=== PATIENT | female | born 1970 | race Caucasian/White ===

== ENCOUNTER → 2017-07-14 09:49 | Outpatient (CLI) | payer OTHER, SELFPAY ==
[2017-07-14 14:11] LABS: Thyroid Stim Hormone (TSH) 0.76 uIU/mL (0.358-3.74)
[2017-07-19 14:14] LABS: Vitamin D 1,25-Dihydroxy 36.3 pg/mL (19.9-79.3)
== END ==
PROVIDERS: Visit Provider Nurse Practitioner Women's Health
DX: R53.83 Other fatigue (principal)
CPT/HCPCS: 36415; 82652; 84443

== ENCOUNTER → 2017-07-14 18:37 | Outpatient (CLI) | payer OTHER, SELFPAY ==
[2017-07-20 13:51] LABS: HPV APTIMA, High Risk Negative (Negative)
== END ==
PROVIDERS: Visit Provider Nurse Practitioner Women's Health
DX: Z12.4 Encounter for screening for malignant neoplasm of cervix (principal)
CPT/HCPCS: 88175; G0145

== ENCOUNTER → 2017-08-02 17:30 | Outpatient (CLI) | payer OTHER, SELFPAY ==
--- NOTE | 2017-08-02 17:06 | HPBI_ITS ---
MAMMOGRAPHY - BILATERAL SCREENING REASON FOR EXAM: Female, 47 years old. Routine annual screening examination. PERTINENT HISTORY: Non-contributory. TECHNIQUE: Digital bilateral breast quintin (3D mammographic acquisition) in the CC and MLO projections. 2-D mediolateral oblique (MLO) and craniocaudad (CC) views of both breasts were obtained. CAD: Full Field Digital Mammography with Computer Added Detection was performed. COMPARISON: Comparison is made with prior abdomen examination dated August 16, 2016. FINDINGS: Breast Composition: The breasts are heterogeneously dense, which may obscure small masses. There are no dominant masses or suspicious calcifications. No other significant abnormalities are identified. There has been no significant change since the prior study. HPBI/SCREENING MAMM (CAD), BILAT IMPRESSION: Stable bilateral screening mammogram. Yearly follow-up mammogram recommended. (A) ASSESSMENT CATEGORY: BIRADS Category 1: Negative. A letter regarding these results will be sent to the patient by the facility within 30 days. Approximately 10% of breast cancers are not detected by mammography. A normal mammogram should not delay biopsy of a clinically suspicious abnormality. [id number] Electronically Signed: Geovanni Milner MD at 8:09 EDT Tel [phone], Service support ,
== END ==
PROVIDERS: Visit Provider Nurse Practitioner Women's Health
DX: Z12.31 Encounter for screening mammogram for malignant neoplasm of breast (principal)
CPT/HCPCS: 77063; 77067

== ENCOUNTER → 2017-08-12 09:22 | Outpatient (CLI) | payer OTHER, SELFPAY ==
--- NOTE | 2017-08-12 09:23 | US_ITS ---
STUDY: ULTRASOUND TRANSVAGINAL CLINICAL: Female, 47 years old. Irregular menses. TECHNIQUE: Transabdominal and Transvaginal COMPARISON: Pelvic ultrasound dated August 12, 2017 FINDINGS: Normal uterine size measuring 10.4 x 4.9 x 5.6 cm. There are 2 myometrial masses. The largest mass appears to somewhat pedunculated and subserosal. This is located at the uterine fundus and measures 2.5 x 2.4 x 2.6 cm. A smaller hypoechoic lesion is visible within the uterine body measuring 5.4 x 4.2 x 6.7 mm. Normal endometrial thickness measuring 6.5 mm. There are no endometrial masses, and there is no fluid in the endometrial cavity. Appears to be a large nabothian cyst within the cervix measuring up to 1.4 cm. The cervix is a grossly normal appearance otherwise. Normal right ovary, measuring 2.2 x 3.4 x 2.2 cm. There are multiple follicles without a dominant cyst. Normal left ovary, measuring 1.6 x 2.9 x 1.7 cm. There are multiple follicles without a dominant cyst. There is no free fluid in the pelvis. Polycystic ovary disease: No. US/Pelvic (Non ) IMPRESSION: 1. Multiple uterine masses are likely leiomyomata. 2. Normal sonographic appearance of both ovaries. Electronically Signed: Ignacia Amezcua MD at 11:12 EDT , Service support ,
--- NOTE | 2017-08-12 09:23 | US_ITS ---
STUDY: ULTRASOUND TRANSVAGINAL CLINICAL: Female, 47 years old. Irregular menses. TECHNIQUE: Transabdominal and Transvaginal COMPARISON: Pelvic ultrasound dated August 12, 2017 FINDINGS: Normal uterine size measuring 10.4 x 4.9 x 5.6 cm. There are 2 myometrial masses. The largest mass appears to somewhat pedunculated and subserosal. This is located at the uterine fundus and measures 2.5 x 2.4 x 2.6 cm. A smaller hypoechoic lesion is visible within the uterine body measuring 5.4 x 4.2 x 6.7 mm. Normal endometrial thickness measuring 6.5 mm. There are no endometrial masses, and there is no fluid in the endometrial cavity. Appears to be a large nabothian cyst within the cervix measuring up to 1.4 cm. The cervix is a grossly normal appearance otherwise. Normal right ovary, measuring 2.2 x 3.4 x 2.2 cm. There are multiple follicles without a dominant cyst. Normal left ovary, measuring 1.6 x 2.9 x 1.7 cm. There are multiple follicles without a dominant cyst. There is no free fluid in the pelvis. Polycystic ovary disease: No. US/Transvaginal Non- IMPRESSION: 1. Multiple uterine masses are likely leiomyomata. 2. Normal sonographic appearance of both ovaries. Electronically Signed: Ignacia Amezcua MD at 11:12 EDT , Service support ,
== END ==
PROVIDERS: Visit Provider Nurse Practitioner Women's Health
DX: N92.6 Irregular menstruation, unspecified (principal)
CPT/HCPCS: 76830; 76856; 93976

== ENCOUNTER → 2017-08-16 15:59 | Outpatient (CLI) | payer OTHER, SELFPAY ==
--- NOTE | 2017-08-16 | EMB_PTH ---
PATIENT: CHICO BANEGAS LOC: [facility] U#:[id number] AGE/SX: 55/F ROOM: RE08/16/[address]: SAMAN Tamayo : 1970 BED: DIS: SPEC #: [id number] RECD: 08/16/17 15:58 STATUS: ELINA RAYMOND #: [id number] SHALOM: 08/16/17 00:[address]: Le Vargas NP DEPT: SURGICAL PATHOLOGY RECD BY: Richard Barber ENTERED: 08/17/17 08:06 SP TYPE: ENDOM BX/C PEGGY DR: No Primary Care Phys Tissues: Endometrium, NOS Procedures: Surgery Specimen Level IV HEADER OPERATION: Endometrial biopsy PRE-OP DIAGNOSIS: Thickened endometrial lining TISSUE SUBMITTED: Endometrial biopsy MICROSCOPIC DIAGNOSIS Endometrium, biopsy: Strips of benign superficial endometrium. Rare strips of benign superficial ectocervix and endocervix. AM:darlin 08/18/17 COMMENT There is no evidence of hyperplasia. MICROSCOPIC DESCRIPTION Slides are reviewed. GROSS DESCRIPTION Received is one container labeled with the patient's name and not further designated. The specimen consists of multiple fragments of hemorrhagic soft tissue that in aggregate measure 2 x 0.7 x 0.1 cm. The specimen is totally submitted in one cassette. / SJ:darlin 08/17/17 TC:5 [facility]: [id number]
== END ==
PROVIDERS: Visit Provider Nurse Practitioner Women's Health
DX: R93.8 Abnormal findings on diagnostic imaging of other specified body structures (principal)
CPT/HCPCS: 88305

== ENCOUNTER → 2018-09-13 | Outpatient (CLI) | payer OTHER, SELFPAY ==
--- NOTE | 2018-09-13 13:35 | BI_ITS ---
MAMMOGRAPHY - BILATERAL SCREENING REASON FOR EXAM: Female, 48 years old. Routine annual screening examination. PERTINENT HISTORY: Non-contributory. TECHNIQUE: Digital bilateral breast ned (3D mammographic acquisition) in the CC and MLO projections. 2-D mediolateral oblique (MLO) and craniocaudad (CC) views of both breasts were obtained. CAD: Full Field Digital Mammography with Computer Added Detection was performed. COMPARISON: Comparison is made with prior study dated August 02, 2017. FINDINGS: Breast Composition: The breasts are heterogeneously dense, which may obscure small masses. There are no dominant masses or suspicious calcifications. No other significant abnormalities are identified. There has been no significant change since the prior study. BI/SCREEN MAMM (CAD) W/NED BILAT IMPRESSION: Stable bilateral screening mammogram. Yearly follow-up mammogram recommended. (A) ASSESSMENT CATEGORY: BIRADS Category 1: Negative. A letter regarding these results will be sent to the patient by the facility within 30 days. Approximately 10% of breast cancers are not detected by mammography. A normal mammogram should not delay biopsy of a clinically suspicious abnormality. [id number] Electronically Signed: Geovanni Milner, at 15:23 EDT , Service support ,
== END | disposition home or self-care (01) ==
LOC: OPBI 13:33
PROVIDERS: Family Provider Family Medicine; PCP Family Medicine; Referring Provider Nurse Practitioner Women's Health; Visit Provider Nurse Practitioner Women's Health
DX: Z12.31 Encounter for screening mammogram for malignant neoplasm of breast (principal)
CPT/HCPCS: 77063; 77067

== ENCOUNTER → 2019-11-21 15:00 | Outpatient (CLI) | payer OTHER, SELFPAY ==
[2018-09-13 14:34] VITALS: BMI 32.6
--- NOTE | 2019-11-21 15:00 | BI_ITS ---
MAMMOGRAPHY - BILATERAL SCREENING REASON FOR EXAM: Female, 49 years old. Routine annual screening examination. PERTINENT HISTORY: Non-contributory. TECHNIQUE: Digital bilateral breast ned (3D mammographic acquisition) in the CC and MLO projections. 2-D mediolateral oblique (MLO) and craniocaudad (CC) views of both breasts were obtained. CAD: Full Field Digital Mammography with Computer Added Detection was performed. COMPARISON: Comparison is made with prior examination dated September 13, 2018 and August 02, 2017. FINDINGS: Breast Composition: The breasts are heterogeneously dense, which may obscure small masses. There are no dominant masses or suspicious calcifications. No other significant abnormalities are identified. There has been no significant change since the prior study. BI/SCREEN MAMM (CAD) W/NED BILAT IMPRESSION: Stable bilateral screening mammogram. Yearly follow-up mammogram recommended. (A) ASSESSMENT CATEGORY: BIRADS Category 1: Negative. A letter regarding these results will be sent to the patient by the facility within 30 days. Approximately 10% of breast cancers are not detected by mammography. A normal mammogram should not delay biopsy of a clinically suspicious abnormality. [id number] Electronically Signed: Geovanni Milner, at 8:15 EDT , Service support ,
== END ==
PROVIDERS: Family Provider Family Medicine; PCP Family Medicine; Referring Provider Nurse Practitioner Women's Health; Visit Provider Nurse Practitioner Women's Health
DX: Z12.31 Encounter for screening mammogram for malignant neoplasm of breast (principal)
CPT/HCPCS: 77063; 77067

== ENCOUNTER → 2021-03-18 14:53 | Outpatient (CLI) | payer OTHER, SELFPAY ==
[2019-11-21 15:52] VITALS: BMI 32.6
--- NOTE | 2021-03-18 14:57 | BI_ITS ---
MAMMOGRAPHY - BILATERAL SCREENING REASON FOR EXAM: Female, 50 years old. Routine annual screening examination. PERTINENT HISTORY: Non-contributory. TECHNIQUE: Digital bilateral breast ned (3D mammographic acquisition) in the CC and MLO projections. 2-D mediolateral oblique (MLO) and craniocaudad (CC) views of both breasts were obtained. CAD: Full Field Digital Mammography with Computer Added Detection was performed. COMPARISON: Comparison is made with prior study dated 11/21/2019 and 09/13/2018. FINDINGS: Breast Composition: The breasts are heterogeneously dense, which may obscure small masses. There are no dominant masses or suspicious calcifications. No other significant abnormalities are identified. There has been no significant change since the prior study. BI/SCRN MAMM (CAD)W/NED BILAT IMPRESSION: Stable bilateral screening mammogram. Yearly follow-up mammogram recommended. (A) ASSESSMENT CATEGORY: BIRADS Category 1: Negative. A letter regarding these results will be sent to the patient by the facility within 30 days. Approximately 10% of breast cancers are not detected by mammography. A normal mammogram should not delay biopsy of a clinically suspicious abnormality. [id number] Electronically Signed: Geovanni Milner MD at 15:42 EDT , Service support ,
== END ==
PROVIDERS: PCP Family Medicine; Referring Provider Nurse Practitioner Women's Health; Visit Provider Nurse Practitioner Women's Health
DX: Z12.31 Encounter for screening mammogram for malignant neoplasm of breast (principal)
CPT/HCPCS: 77063; 77067

== ENCOUNTER → 2022-05-26 | Outpatient (CLI) | payer OTHER, SELFPAY ==
--- NOTE | 2022-05-26 13:49 | BI_ITS ---
MAMMOGRAPHY - BILATERAL SCREENING REASON FOR EXAM: Female, 52 years old. Routine annual screening examination. PERTINENT HISTORY: Non-contributory. TECHNIQUE: Digital bilateral breast ned (3D mammographic acquisition) in the CC and MLO projections. 2-D mediolateral oblique (MLO) and craniocaudad (CC) views of both breasts were obtained. CAD: Full Field Digital Mammography with Computer Added Detection was performed. COMPARISON: Comparison is made with prior study 03/18/2021 and 11/21/2019. FINDINGS: Breast Composition: The breasts are heterogeneously dense, which may obscure small masses. There are no dominant masses or suspicious calcifications. No other significant abnormalities are identified. There has been no significant change since the prior study. BI/SCRN MAMM (CAD)W/NED BILAT IMPRESSION: Stable bilateral screening mammogram. Yearly follow-up mammogram recommended. (A) ASSESSMENT CATEGORY: BIRADS Category 1: Negative. A letter regarding these results will be sent to the patient by the facility within 30 days. Approximately 10% of breast cancers are not detected by mammography. A normal mammogram should not delay biopsy of a clinically suspicious abnormality. [id number] Electronically Signed: Geovanni Milner MD at 15:14 EST ,
[2022-06-01 05:07] LABS: HPV Genotype 16, Aptima Negative (Negative)
[2022-06-01 14:45] LABS: HPV APTIMA, High Risk Positive (Negative); HPV Genotype 18,45 Aptima Negative (Negative)
== END | disposition home or self-care (01) ==
PROVIDERS: PCP Family Medicine; Referring Provider Nurse Practitioner Women's Health; Visit Provider Nurse Practitioner Women's Health
DX: Z12.31 Encounter for screening mammogram for malignant neoplasm of breast (principal); N89.8 Other specified noninflammatory disorders of vagina
CPT/HCPCS: 77063; 77067; 87070; 87205; 87624; 88175; G0145

== ENCOUNTER → 2022-05-31 | Outpatient (CLI) | payer OTHER, SELFPAY ==
--- NOTE | 2022-05-31 16:27 | US_ITS ---
INDICATION: AUB EXAMINATION: Ultrasound US Pelvis Non OB Complete With Transvaginal Imaging TECHNIQUE: Transabdominal and transvaginal pelvic ultrasound was performed. Grayscale, spectral waveform, and color flow Doppler evaluation of the adnexa. COMPARISON: August 12, 2017 FINDINGS: UTERUS: Anteverted. The uterus measures 10.6 x 5.3 x 5.4 cm. There are fibroid measuring 3.2 x 3 x 2.3 cm and 1.6 x 1.5 x 1.4 cm. The endometrial stripe measures 7 mm in AP diameter which is within normal limits. Large nabothian cyst noted in the lower uterine segment RIGHT OVARY: 3.8 x 2.2 x 2.8 cm. Non-enlarged, normal echogenicity. There is normal arterial inflow and venous outflow present in the right ovary. LEFT OVARY: 2.1 x 1.6 x 1.1 cm. Non-enlarged, normal echogenicity. There is normal arterial inflow and venous outflow present in the left ovary. FREE FLUID: None. US/Pelvic (Non ) IMPRESSION: Intrauterine fibroids which have increased in size since prior exam.. No other significant abnormality Unremarkable pelvic ultrasound. Electronically Signed: Antonio Ramos MD at 22:43 EST Reading Location ID and State: [address] [place] [address] , Service support ,
== END | disposition home or self-care (01) ==
PROVIDERS: PCP Family Medicine; Visit Provider Nurse Practitioner Women's Health
DX: N93.9 Abnormal uterine and vaginal bleeding, unspecified (principal)
CPT/HCPCS: 76830; 76856

== ENCOUNTER → 2022-06-30 | Outpatient (CLI) | payer OTHER, SELFPAY ==
[2022-06-30 18:12] LABS: Follicle Stimulating Hormone 14.7 mIU/mL
== END | disposition home or self-care (01) ==
LOC: LAB 16:44
PROVIDERS: PCP Family Medicine; Visit Provider Nurse Practitioner Women's Health
DX: N93.9 Abnormal uterine and vaginal bleeding, unspecified (principal)
CPT/HCPCS: 36415; 82670; 83001

== ENCOUNTER → 2023-06-01 | Outpatient (CLI) | payer OTHER, SELFPAY ==
--- NOTE | 2023-06-01 13:59 | BI_ITS ---
MAMMOGRAPHY - BILATERAL SCREENING REASON FOR EXAM: Female, 53 years old. Routine annual screening examination. PERTINENT HISTORY: Non-contributory. TECHNIQUE: Digital bilateral breast ned (3D mammographic acquisition) in the CC and MLO projections. 2-D mediolateral oblique (MLO) and craniocaudad (CC) views of both breasts were obtained. CAD: Full Field Digital Mammography with Computer Added Detection was performed. COMPARISON: Comparison is made with prior study dated May 26, 2022 and March 18, 2021. FINDINGS: Breast Composition: The breasts are heterogeneously dense, which may obscure small masses. There are no dominant masses or suspicious calcifications. No other significant abnormalities are identified. There has been no significant change since the prior study. BI/SCRN MAMM (CAD)W/NED BILAT IMPRESSION: Stable bilateral screening mammogram. Yearly follow-up mammogram recommended. (A) ASSESSMENT CATEGORY: BIRADS Category 1: Negative. A letter regarding these results will be sent to the patient by the facility within 30 days. Approximately 10% of breast cancers are not detected by mammography. A normal mammogram should not delay biopsy of a clinically suspicious abnormality. [id number] Electronically Signed: Geovanni Milner MD at 9:31 EST ,
--- OUTSIDE RECORDS SUMMARY | 2023-06-01 14:28 | XMS RPT_ITS | CCD ---
Author Name Unknown Address [address] [place] [address] Organization [facility] Care Team Providers Care National Account Director Name Role Phone STEVE NAJERA MD Primary Care Physician EFREN TINSLEY CNP Attending Unavailable STEVE NAJERA MD Primary Care Unavailable Medications Current Medications Medication Drug Class(es) Dates Sig (Normalized) Sig (Original) PARoxetine hydrochloride 20 mg oral tablet (1 source) Serotonin Reuptake Inhibitor Start: 06-04-2021 End: 05-30-2022 PARoxetine 20 mg oral tablet Dose : 20 mg = 1 tab(s), Oral, qDay, # 90 tab(s), 3 Refill(s), Pharmacy: [id number], 172.7, cm, 06/04/21 13:59:00 EST, Height, kg, 06/04/21 13:59:00 EST, Dosing Weight Start Date: 06/04/21 Stop Date: 05/30/22 Status: Ordered pindolol 10 mg oral tablet (1 source) beta-Adrenergic Demetri Start: 06-04-2021 End: 05-30-2022 pindolol 10 mg oral tablet Dose : 20 mg = 2 tab(s), Oral, qDay, # 180 tab(s), 3 Refill(s), Pharmacy: [id number], 172.7, cm, 06/04/21 13:59:00 EST, Height, kg, 06/04/21 13:59:00 EST, Dosing Weight Start Date: 06/04/21 Stop Date: 05/30/22 Status: Ordered Problems Problem Classification Problem Date Documented Da te Episodic/Chronic Anxiety disorders (1 source) Obsessive-compulsive disorder 04-02-2019 Chronic Cardiac dysrhythmias (1 source) Palpitations 09-03-2019 Episodic Heart valve disorders (1 source) Mitral valve prolapse 05-12-2020 Chronic Other gastrointestinal disorders (1 source) Irritable bowel syndrome 04-02-2019 Chronic Other gastrointestinal disorders (1 source) Constipation 04-02-2019 Episodic Other nervous system disorders (1 source) Thoracic outlet syndrome 04-02-2019 Chronic Residual codes; unclassified (1 source) Obstructive sleep apnea syndrome 09-03-2019 Chronic Results Test Name Value Interpretation Reference Range Facil ity Encounters Encounter Date Encounter Type Care Provider Facility Start: 05-26-2022 End: 05-27-2022 ambulatory EFREN TINSLEY CNP Facility:[facility] Start: 05-26-2022 End: 05-26-2022 Patient encounter procedure EFREN TINSLEY APRN-COMPLETION ENGINEER [facility] Procedures Date Procedure Procedure Detail Performing Clinician Start: 09-26-2018 Electrocardiographic monitoring EFREN TINSLEY APRN-COMPLETION ENGINEER Immunizations Immunization Date Immunization Notes Care Provider Fa carolynty 04-02-2019 influenza, injectabl e, quadrivalent, preservative free; Translations: [Fluarix PF Quadrivalent ] EFREN TINSLEY APRN-COMPLETION ENGINEER [facility] 02-01-2017 hepatitis A vaccine, adult dosage EFREN TINSLEY CHALK CUTTER-COMPLETION ENGINEER [facility] 02-01-2017 tetanus toxoid, redu filiberto diphtheria toxoid, and acellular pertussis vaccine, adsorbed EFREN TINSLEY APRN-COMPLETION ENGINEER [facility] Payers Date Payer Category Payer Unknown [id number] 1970 Unknown [id number] Social History Date Type Detail Facility Start: 04-02-2019 Tobacco smoking status Never s moked tobacco (finding) [facility] Sex Assigned At Female [facility] Evaluation + Plan note Note Date & Type Note Facility Evaluation + Plan note No data available for this section [facility] Hospital Discharge instructions Note Date & Type Note Facility Hospital Discharge instructions No data available for this section [facility] Progress note Note Date & Type Note Facility Progress note No data available for this section [facility] Summary Purpose Family History No Family History Records Found Advance Directives No Advanced Directives Records Found Additional Source Comments Care Team (unrecognized sect ion and content) Care Team Personnel Name: STEVE NAJERA MD Position: P4 Physician - Primary Care Member Role: Primary Care Physician Address: Address: [address] [place] [id number] [place] [address] Care Team Related Persons Name: ANNA BANEGAS Address: [address] [phone] INFORMATION SOURCE (unrecogn ized section and content) FOR RECORDS PERTAINING TO PATIENTS WHO ARE OR HAVE BEEN ENROLLED IN A CHEMICAL DEPENDENCY/SUBSTANCEABUSE PROGRAM, SOME INFORMATION MAY BE OMITTED. This clinical summary was aggregated from multiple sources. Caution should be exercised in using it in the provision of clinical care. This summary normalizes information from multiple sources, and as a consequence, information in this document may materially change the coding, format and clinical context of patient data. In addition, data may be omitted in some cases. CLINICAL DECISIONS SHOULD BE BASED ON THE PRIMARY CLINICAL RECORDS. [facility] [employer] [facility]. provides no warranty or guarantee of the accuracy or completeness of information in this document.
[2023-06-06 18:07] LABS: HPV APTIMA, High Risk Negative (Negative)
== END | disposition home or self-care (01) ==
PROVIDERS: PCP Family Medicine; Referring Provider Nurse Practitioner Women's Health; Visit Provider Nurse Practitioner Women's Health
DX: Z12.31 Encounter for screening mammogram for malignant neoplasm of breast (principal)
CPT/HCPCS: 77063; 77067; 87624; 88175; G0145

== ENCOUNTER → 2024-10-15 | Outpatient (CLI) | payer SELFPAY ==
--- NOTE | 2024-10-15 09:54 | BI_ITS ---
EXAM: SCRN MAMM (CAD)W/NED BILAT DATE: 10/15/2024 CLINICAL HISTORY: F, Age 54 y/o , SCREENING MAMMOGRAM FOR BREAST BREAST CANCER RISK ASSESSMENT: Has not been calculated. TECHNIQUE: Bilateral screening digital breast tomosynthesis with 2D and 3D images. Computer aided detection. COMPARISON: Prior exam(s) dated 06/01/2023 and 05/26/2022. FINDINGS: TISSUE DENSITY: The breast tissue is heterogenously dense, which may obscure small masses. Bilateral Breast Mammographic Findings: There are no suspicious masses, suspicious cluster of microcalcifications, architectural distortion or secondary signs of malignancy identified in either breast. Benign vascular calcifications and round calcifications are seen in both breasts. BI/SCRN MAMM (CAD)W/NED BILAT IMPRESSION: OVERALL FINAL ASSESSMENT: BIRADS 2 BENIGN FINDING RECOMMENDATION: Routine annual follow-up in 1 Year A letter with findings and recommendations will be mailed to the patient. Reading Location: [id number]
== END | disposition home or self-care (01) ==
PROVIDERS: PCP Family Medicine; Referring Provider Nurse Practitioner Women's Health; Visit Provider Nurse Practitioner Women's Health
DX: Z12.31 Encounter for screening mammogram for malignant neoplasm of breast (principal)
CPT/HCPCS: 77063; 77067